=== PATIENT | male | born 1965 | race African-American/Black ===

== ENCOUNTER 2020-05-06 00:13 | Emergency (ER) | payer MEDICAID ==
[~2020-05-06] VITALS: Ht 172.7 cm; Wt 77.0 kg
[~2020-05-06 00:13] MED LIST: BUSP15TA3 PO; DOCU-138 PO; FLUO10CA26; FLUO90CA4 PO; GABA-290 PO; GABA300C; HYDR-4001 PO; IBUP-2028 PO; LEVO0.5P2; LEVO75TA7 PO; NAPR-1164 PO; NORCO; PROM25TA13 PO; PROZAC; QUET25TA; SULF-165 PO
[2020-05-06] MEDS ORDERED: CYCLOBENZAPRINE 10MG TABLET PO ONE (02:00)
[2020-05-06] MEDS ORDERED: KETOROLAC 30MG/ML VIAL IM ONE (02:00)
[2020-05-06 02:47] VITALS: BP 115/69
== END 2020-05-06 03:02 | disposition home or self-care (01) ==
LOC: ER 00:13
DX: S02.2XXA Fracture of nasal bones, initial encounter for closed fracture (principal); S16.1XXA Strain of muscle, fascia and tendon at neck level, initial encounter; S80.01XA Contusion of right knee, initial encounter; S39.012A Strain of muscle, fascia and tendon of lower back, initial encounter; V49.59XA Passenger injured in collision with other motor vehicles in traffic accident, initial encounter; Y93.89 Activity, other specified; Y92.89 Other specified places as the place of occurrence of the external cause; Y99.8 Other external cause status; I10 Essential (primary) hypertension; Z79.899 Other long term (current) drug therapy; Z88.0 Allergy status to penicillin
CPT/HCPCS: 70450; 71045; 72125; 73090; 73110; 73562; 74176; 93005; 96372; 99285; J1885